=== PATIENT | female | born 1955 | race African-American/Black ===

== ENCOUNTER 2018-11-06 14:46 | Emergency (ER) | payer MEDICARE, OTHER, MEDICAID ==
[~2018-11-06] VITALS: Ht 162.6 cm; Wt 66.0 kg
[~2018-11-06 14:46] MED LIST: ALBU18HF2 IH; BIMA2.5D4 BOTHEYE; CYCL5TAB PO; ESOM40CA PO; GEMF600T5 PO; HYDR25TA PO; MELO-106 PO; OCD PO; POTA10CA42 PO; TRAM50TA3 PO; VALS80TA2 PO
[2018-11-06] MEDS ORDERED: KETOROLAC 60MG/2ML VIAL IM ONE (15:45)
[2018-11-06] MEDS ORDERED: TRAMADOL 50MG TABLET PO ONE (16:00)
[2018-11-06 18:12] VITALS: BP 132/83
== END 2018-11-06 18:16 | disposition home or self-care (01) ==
LOC: ER 14:46
DX: S70.01XA Contusion of right hip, initial encounter (principal); S50.02XA Contusion of left elbow, initial encounter; J44.9 Chronic obstructive pulmonary disease, unspecified; E78.00 Pure hypercholesterolemia, unspecified; I10 Essential (primary) hypertension; F17.200 Nicotine dependence, unspecified, uncomplicated; W18.39XA Other fall on same level, initial encounter; Y93.89 Activity, other specified; Y92.89 Other specified places as the place of occurrence of the external cause; Y99.8 Other external cause status; Z90.710 Acquired absence of both cervix and uterus; Z96.649 Presence of unspecified artificial hip joint; Z79.899 Other long term (current) drug therapy; Z88.5 Allergy status to narcotic agent
CPT/HCPCS: 73502; 99283; J1885

== ENCOUNTER 2023-05-24 00:05 | Inpatient (IN) | payer MEDICARE, MEDICAID ==
[~2023-05-24] VITALS: Ht 157.5 cm; Wt 67.6 kg
[~2023-05-24 00:05] MED LIST changes: -GEMF600T5 PO; +GEMF600T90 PO; -POTA10CA42 PO; +POTA10CA83 PO
[2023-05-24] MEDS ORDERED: IPRATROPIUM BROMIDE (0.02%) 0.5MG/2.5ML NEB HHN STA (00:10)
[2023-05-24] MEDS ORDERED: METHYLPREDNISOLONE SOD SUCC 125MG/2ML (ACT-O-VIAL) IV STA (00:10)
[2023-05-24] MEDS ORDERED: MAGNESIUM 2 G PREMIX 50 ML IV ONE (00:15)
[2023-05-24] MEDS: ALBUTEROL (0.083%) 2.5MG/3ML NEB HHN SCH ×2 (00:36→00:37)
[2023-05-24 00:37] VITALS: RESP 32
[2023-05-24 00:39] LABS: HEMATOCRIT. 43.8 % (36.0-48.0); HEMOGLOBIN. 13.6 g/dL (12.0-16.0); MEAN CORPUSCULAR HGB CONC 31.1 g/dL (31.0-37.0); MEAN CORPUSCULAR VOLUME 96.7 fL (81.0-99.0); MEAN PLATELET VOLUME 8.5 fl (7.4-10.4); PLATELET 394 x1000/uL (130-400); RED BLOOD CELL COUNT 4.53 mill/uL (4.2-5.4); RED CELL DISTRIBUTION WIDTH 14.8 % (11.6-14.6); WHITE BLOOD COUNT 17.9 x1000/uL (4.5-11.0)
[2023-05-24 00:46] LABS: DIFFERENTIAL COMMENT 1
[2023-05-24 00:59] LABS: ALANINE AMINOTRANSFERASE 17 IU/L (10-49); ALBUMIN 4.1 g/dL (3.2-4.8); ASPARTATE AMINOTRANSFERASE 42 IU/L (<34); BILIRUBIN TOTAL 0.4 mg/dL (0.1-1.0); CALCIUM 10.7 mg/dL (8.7-10.4); CARBON DIOXIDE 22 mEq/L (21-32); CHLORIDE 103 mEq/L (98-107); GLUCOSE 140 mg/dL (70-105); POTASSIUM 4.3 mEq/L (3.5-5.1); SODIUM 136 mEq/L (136-145); UREA NITROGEN BLOOD 29 mg/dL (9-23)
[2023-05-24 01:37] LABS: TROPONIN I HIGH SENSITIVITY 226 ng/L (3.0-34)
[2023-05-24] MEDS ORDERED: ASPIRIN 325MG EC TABLET PO ONE (01:45)
[2023-05-24 04:18] VITALS: RESP 22
[2023-05-24 05:04] LABS: PLATELET ESTIMATE NORMAL
[2023-05-24] MEDS ORDERED: MAGNESIUM/ALUMINUM HYDROXIDE/SIMETHICONE 30ML UDC PO PRN (07:00)
[2023-05-24] MEDS ORDERED: GUAIFENESIN 200MG/10ML SUGAR FREE UDC PO PRN (07:00)
[2023-05-24] MEDS: IPRATROPIUM/ALBUTEROL 0.5-3(2.5)MG/3ML NEB NEB SCH ×2 (07:00→21:15)
[2023-05-24] MEDS ORDERED: ONDANSETRON HCL 4MG/2ML INJ IV PRN (07:00)
[2023-05-24] MEDS ORDERED: CLONIDINE 0.1MG TABLET PO PRN (07:00)
[2023-05-24] MEDS ORDERED: AZITHROMYCIN 500MG/250ML 250 ML IV NR (07:30)
[2023-05-24 07:50] VITALS: RESP 24
[2023-05-24 08:04] LABS: ALANINE AMINOTRANSFERASE 15 IU/L (10-49); ALBUMIN 3.6 g/dL (3.2-4.8); ASPARTATE AMINOTRANSFERASE 34 IU/L (<34); BILIRUBIN TOTAL 0.3 mg/dL (0.1-1.0); CALCIUM 10.1 mg/dL (8.7-10.4); CARBON DIOXIDE 20 mEq/L (21-32); CHLORIDE 106 mEq/L (98-107); GLUCOSE 170 mg/dL (70-105); PHOSPHORUS 5.6 mg/dL (2.5-4.9); POTASSIUM 4.3 mEq/L (3.5-5.1); PROTEIN TOTAL 6.3 g/dL (6.0-8.3); SODIUM 135 mEq/L (136-145); T4 FREE 1.37 ng/dL (0.89-1.76); UREA NITROGEN BLOOD 30 mg/dL (9-23)
[2023-05-24 08:11] LABS: THYROID STIMULATING HORMONE < 0.00 uIU/mL (0.55-4.78)
[2023-05-24] MEDS ORDERED: ENOXAPARIN 60MG/0.6ML SYR SUBCUT SCH ×3 (09:00→21:00)
[2023-05-24] MEDS ORDERED: ENOXAPARIN 40MG/0.4ML SYR SUBCUT SCH (09:00)
[2023-05-24 09:26] LABS: BG BASE EXCESS -2.7 mmol/L (-2.0-2.0); BG CARBOXYHEMOGLOBIN 0.6 % (0.5-1.5); BG DEOXYHEMOGLOBIN 0.9 % (0.0-5.0); BG FRACTION INSPIRED OXYGEN 40; BG HCO3 ACT 21.3 mmol/L (22.0-26.0); BG METHEMOGLOBIN 0.3 % (0.0-1.5); BG OXYGEN SATURATION 99.1 % (92.0-98.5); BG OXYHEMOGLOBIN 98.2 % (94.0-97.0); BG PCO2 34.9 mmHg (35.0-45.0); BG PH 7.404 (7.350-7.450); BG PO2 152.6 mmHg (75.0-100.0); BG SAMPLE SITE RIGHT BRACHIAL; BG TOTAL HEMOGLOBIN 13.7 g/dL (12.0-18.0); BG VENT MODE MASK - BIPAP
[2023-05-24 09:36] LABS: HEMATOCRIT. 40.1 % (36.0-48.0); HEMOGLOBIN. 12.9 g/dL (12.0-16.0); MEAN CORPUSCULAR HEMOGLOBIN 30.4 pg (28.0-32.0); MEAN CORPUSCULAR HGB CONC 32.1 g/dL (31.0-37.0); MEAN CORPUSCULAR VOLUME 94.5 fL (81.0-99.0); MEAN PLATELET VOLUME 8.7 fl (7.4-10.4); PLATELET 291 x1000/uL (130-400); RED BLOOD CELL COUNT 4.24 mill/uL (4.2-5.4); RED CELL DISTRIBUTION WIDTH 14.4 % (11.6-14.6); WHITE BLOOD COUNT 13.9 x1000/uL (4.5-11.0)
[2023-05-24 09:38] LABS: DIFFERENTIAL COMMENT 1
[2023-05-24 09:55] LABS: PLATELET ESTIMATE NORMAL
[2023-05-24 10:46] LABS: INR 1.1; PROTHROMBIN TIME 11.6 sec (9.6-11.0)
[2023-05-24 12:13] LABS: CREATINE KINASE MB FRACTION 2.4 ng/mL (0.5-3.6)
[2023-05-24] MEDS ORDERED: IOHEXOL-350 100 ML BOTTLE ONE (14:02)
[2023-05-24] MEDS: PREGABALIN 75MG CAPSULE PO SCH ×2 (15:15→20:52)
[2023-05-24] MEDS: BUPROPION HCL 150MG SR TABLET PO SCH ×2 (15:16→20:52)
[2023-05-24 18:50] VITALS: BP 141/87; PULSE 108; RESP 20; TEMP 98.7
[2023-05-24 20:00] VITALS: BP 131/86; PULSE 110; RESP 18; TEMP 97.8
[2023-05-24] MEDS ORDERED: PREGABALIN 75MG CAPSULE ONE (20:41)
[2023-05-24 20:44] LABS: CREATINE KINASE MB FRACTION 2.8 ng/mL (0.5-3.6)
[2023-05-24 21:15] VITALS: PULSE 108; RESP 18; O2SAT 98
[2023-05-24] MEDS: BUDESONIDE 0.5MG/2ML NEB HHN SCH (21:15)
[2023-05-25] VITALS (10 sets, daily range): BP systolic 110–138; BP diastolic 57–88; PULSE 22–110; RESP 16–22; TEMP 97–98.4; O2SAT 96–99
[2023-05-25 01:23] LABS: CREATINE KINASE MB FRACTION 2.3 ng/mL (0.5-3.6)
[2023-05-25] MEDS: IPRATROPIUM/ALBUTEROL 0.5-3(2.5)MG/3ML NEB NEB SCH ×4 (03:16→20:30)
[2023-05-25] MEDS ORDERED: PREGABALIN 75MG CAPSULE ONE (08:07)
[2023-05-25] MEDS: BUPROPION HCL 150MG SR TABLET PO SCH ×2 (08:21→20:12)
[2023-05-25] MEDS: PREGABALIN 75MG CAPSULE PO SCH (08:22)
[2023-05-25] MEDS: BUDESONIDE 0.5MG/2ML NEB HHN SCH (09:06)
[2023-05-25] MEDS: NITROGLYCERIN 0.4MG TABLET SL SL PRN ×3 (09:26→09:40)
[2023-05-25] MEDS: ENOXAPARIN 40MG/0.4ML SYR SUBCUT SCH (09:41)
[2023-05-25] MEDS ORDERED: ALPRAZOLAM 0.5 MG TABLET ONE (10:52)
[2023-05-25] MEDS: ALPRAZOLAM 0.5 MG TABLET PO SCH ×2 (11:00→17:00)
[2023-05-25] MEDS: ASPIRIN 81MG TABLET PO SCH (11:00)
[2023-05-25 12:51] LABS: TROPONIN I HIGH SENSITIVITY 90 ng/L (3.0-34)
[2023-05-25 16:45] LABS: CLARITY URINE CLOUDY (CLEAR); COLOR URINE YELLOW (YELLOW); GLUCOSE URINE NEGATIVE (NEGATIVE); KETONES URINE NEGATIVE (NEGATIVE); LEUKOCYTE ESTERASE URINE 1+ (NEGATIVE); NITRITE URINE NEGATIVE (NEGATIVE); OCCULT BLOOD URINE NEGATIVE (NEGATIVE); PH URINE 5.5 (4.5-8.0); PROTEIN URINE TRACE (NEGATIVE); SPECIFIC GRAVITY URINE 1.041 (1.005-1.030)
[2023-05-25 17:06] LABS: BACTERIA URINE 1+; HYALINE CASTS URINE 0-5 /lpf; RBC URINE 0-2 /hpf (0-2); SQUAMOUS EPITHELIAL CELL URINE 2+ /lpf (RARE/1+)
[2023-05-25] MEDS: PANTOPRAZOLE SODIUM 40 MG/VIAL IV SCH (17:35)
[2023-05-25] MEDS: PREGABALIN 50 MG CAPSULE PO SCH (20:12)
[2023-05-25] MEDS ORDERED: CEFTRIAXONE 1GM PREMIX 50 ML IV SCH (23:30)
[2023-05-26] VITALS (29 sets, daily range): BP systolic 85–150; BP diastolic 22–114; PULSE 60–142; RESP 18–44; TEMP 96–97.5; O2SAT 94–96
[2023-05-26] MEDS: IPRATROPIUM/ALBUTEROL 0.5-3(2.5)MG/3ML NEB NEB SCH ×2 (01:15→08:51)
[2023-05-26] MEDS: IPRATROPIUM/ALBUTEROL 0.5-3(2.5)MG/3ML NEB NEB PRN (01:54)
[2023-05-26] MEDS: ACETAMINOPHEN 325MG TABLET PO PRN (06:20)
[2023-05-26] MEDS: ASPIRIN 81MG TABLET PO SCH (08:44)
[2023-05-26] MEDS: PANTOPRAZOLE SODIUM 40 MG/VIAL IV SCH (08:46)
[2023-05-26] MEDS: ALPRAZOLAM 0.5 MG TABLET PO SCH ×2 (08:46→19:16)
[2023-05-26] MEDS: BUPROPION HCL 150MG SR TABLET PO SCH (08:46)
[2023-05-26] MEDS: PREGABALIN 50 MG CAPSULE PO SCH (08:46)
[2023-05-26] MEDS: BUDESONIDE 0.5MG/2ML NEB HHN SCH ×2 (08:52→22:06)
[2023-05-26] MEDS: ENOXAPARIN 40MG/0.4ML SYR SUBCUT SCH (10:14)
[2023-05-26] MEDS ORDERED: FUROSEMIDE 40MG/4ML VIAL IVP NR (12:45)
[2023-05-26] MEDS ORDERED: GUAIFENESIN 600MG ER TABLET PO NR (12:45)
[2023-05-26 12:50] LABS: BG BASE EXCESS -1.5 mmol/L (-2.0-2.0); BG DEOXYHEMOGLOBIN 1.1 % (0.0-5.0); BG FRACTION INSPIRED OXYGEN 60; BG HCO3 ACT 21.2 mmol/L (22.0-26.0); BG METHEMOGLOBIN 0.1 % (0.0-1.5); BG OXYGEN SATURATION 98.9 % (92.0-98.5); BG OXYHEMOGLOBIN 98.8 % (94.0-97.0); BG PCO2 29.8 mmHg (35.0-45.0); BG PH 7.469 (7.350-7.450); BG PO2 199.9 mmHg (75.0-100.0); BG SAMPLE SITE RIGHT RADIAL; BG TOTAL HEMOGLOBIN 13.4 g/dL (12.0-18.0); BG TOTAL RESPIRATORY RATE 26 b/min; BG VENT MODE MASK - BIPAP
[2023-05-26] MEDS ORDERED: IPRATROPIUM/ALBUTEROL 0.5-3(2.5)MG/3ML NEB NEB SCH (13:00)
[2023-05-26] MEDS ORDERED: VANCOMYCIN 1.25GM PMX (XELLIA) 250 ML IV NR (15:00)
[2023-05-26 16:05] LABS: HEMOGLOBIN. 13.2 g/dL (12.0-16.0); MEAN CORPUSCULAR HEMOGLOBIN 30.2 pg (28.0-32.0); MEAN CORPUSCULAR HGB CONC 31.4 g/dL (31.0-37.0); MEAN CORPUSCULAR VOLUME 96.1 fL (81.0-99.0); MEAN PLATELET VOLUME 9.3 fl (7.4-10.4); PLATELET 290 x1000/uL (130-400); RED BLOOD CELL COUNT 4.37 mill/uL (4.2-5.4); RED CELL DISTRIBUTION WIDTH 14.4 % (11.6-14.6); WHITE BLOOD COUNT 16.6 x1000/uL (4.5-11.0)
[2023-05-26 16:06] LABS: DIFFERENTIAL COMMENT 1
[2023-05-26 16:25] LABS: PLATELET ESTIMATE NORMAL
[2023-05-26] MEDS: PIPERACILLIN/TAZO 3.375G/50ML 50 ML IV SCH ×2 (16:30→23:31)
[2023-05-26] MEDS ORDERED: METHYLPREDNISOLONE SOD SUCC 125MG/2ML (ACT-O-VIAL) IV NR (16:30)
[2023-05-26 16:54] LABS: ALANINE AMINOTRANSFERASE 15 IU/L (10-49); ALBUMIN 3.7 g/dL (3.2-4.8); ASPARTATE AMINOTRANSFERASE 43 IU/L (<34); BILIRUBIN TOTAL 0.6 mg/dL (0.1-1.0); CALCIUM 10.3 mg/dL (8.7-10.4); CARBON DIOXIDE 23 mEq/L (21-32); CHLORIDE 97 mEq/L (98-107); CREATININE 0.8 mg/dL (0.6-1.0); GLUCOSE 95 mg/dL (70-105); PHOSPHORUS 4.7 mg/dL (2.5-4.9); POTASSIUM 4.4 mEq/L (3.5-5.1); PROTEIN TOTAL 5.9 g/dL (6.0-8.3); SODIUM 130 mEq/L (136-145); UREA NITROGEN BLOOD 19 mg/dL (9-23)
[2023-05-26] MEDS: IPRATROPIUM BROMIDE (0.02%) 0.5MG/2.5ML NEB HHN SCH ×2 (17:09→22:06)
[2023-05-26] MEDS: NITROGLYCERIN 0.4MG TABLET SL SL PRN (17:10)
[2023-05-26] MEDS ORDERED: MORPHINE SULFATE 2 MG/ML CPJ (NOT FOR IM USE) IV ONE (17:30)
[2023-05-26] MEDS: GUAIFENESIN 200MG/10ML SUGAR FREE UDC PO SCH (18:00)
[2023-05-26] MEDS ORDERED: MAGNESIUM 1 G PREMIX 100 ML IV NR (18:30)
[2023-05-26] MEDS: PROPOFOL 10MG/ML 100ML 100 ML IV PRN ×2 (19:15→23:44)
[2023-05-26] MEDS ORDERED: GUAIFENESIN 600MG ER TABLET PO SCH (21:00)
[2023-05-26] MEDS: METHYLPREDNISOLONE SOD SUCC 40MG/ML (ACT-O-VIAL) IV SCH (23:31)
[2023-05-27] VITALS (52 sets, daily range): BP systolic 91–128; BP diastolic 64–87; PULSE 97–121; RESP 18–31; TEMP 97–98.3
[2023-05-27] MEDS: GUAIFENESIN 200MG/10ML SUGAR FREE UDC PO SCH ×4 (01:15→17:13)
[2023-05-27] MEDS: ACETYLCYSTEINE 200MG/ML 20% VIAL 4ML INH SCH ×3 (01:46→17:02)
[2023-05-27] MEDS: IPRATROPIUM BROMIDE (0.02%) 0.5MG/2.5ML NEB HHN SCH ×5 (01:46→20:43)
[2023-05-27] MEDS: SODIUM CHLORIDE 0.9% 1,000 ML IV SCH ×2 (03:09→17:12)
[2023-05-27] MEDS: PIPERACILLIN/TAZO 3.375G/50ML 50 ML IV SCH ×3 (05:25→22:06)
[2023-05-27] MEDS: METHYLPREDNISOLONE SOD SUCC 40MG/ML (ACT-O-VIAL) IV SCH ×3 (05:26→21:41)
[2023-05-27 06:50] LABS: HEMATOCRIT. 39.4 % (36.0-48.0); MEAN CORPUSCULAR HEMOGLOBIN 30.5 pg (28.0-32.0); MEAN CORPUSCULAR HGB CONC 32.9 g/dL (31.0-37.0); MEAN CORPUSCULAR VOLUME 92.5 fL (81.0-99.0); MEAN PLATELET VOLUME 9.5 fl (7.4-10.4); PLATELET 288 x1000/uL (130-400); RED BLOOD CELL COUNT 4.26 mill/uL (4.2-5.4); RED CELL DISTRIBUTION WIDTH 14.5 % (11.6-14.6); WHITE BLOOD COUNT 20.5 x1000/uL (4.5-11.0)
[2023-05-27] MEDS: PROPOFOL 10MG/ML 100ML 100 ML IV PRN (07:11)
[2023-05-27 07:15] LABS: DIFFERENTIAL COMMENT 1
[2023-05-27 07:26] LABS: CALCIUM 9.9 mg/dL (8.7-10.4); CARBON DIOXIDE 15 mEq/L (21-32); CHLORIDE 97 mEq/L (98-107); CREATINE KINASE 144 IU/L (34-145); CREATINE KINASE MB FRACTION 1.9 ng/mL (0.5-3.6); CREATININE 1.2 mg/dL (0.6-1.0); GAMMA GLUTAMYL TRANSPEPTIDASE 294 IU/L (<38); GLUCOSE 133 mg/dL (70-105); PHOSPHORUS 7.3 mg/dL (2.5-4.9); POTASSIUM 4.4 mEq/L (3.5-5.1); SODIUM 135 mEq/L (136-145); TRIGLYCERIDE 197 mg/dL (0-150); UREA NITROGEN BLOOD 33 mg/dL (9-23)
[2023-05-27] MEDS: IPRATROPIUM/ALBUTEROL 0.5-3(2.5)MG/3ML NEB NEB PRN (08:54)
[2023-05-27] MEDS: BUDESONIDE 0.5MG/2ML NEB HHN SCH ×2 (08:54→20:43)
[2023-05-27] MEDS: ALPRAZOLAM 0.5 MG TABLET PO SCH ×2 (09:17→17:13)
[2023-05-27] MEDS: PREGABALIN 50 MG CAPSULE PO SCH ×2 (09:17→21:41)
[2023-05-27] MEDS: BUPROPION HCL 150MG SR TABLET PO SCH ×2 (09:17→21:41)
[2023-05-27] MEDS: ASPIRIN 81MG TABLET PO SCH (09:17)
[2023-05-27] MEDS: ENOXAPARIN 40MG/0.4ML SYR SUBCUT SCH (09:18)
[2023-05-27] MEDS: FAMOTIDINE 20MG/2ML VIAL IV SCH (09:18)
[2023-05-27 09:58] LABS: BG BASE EXCESS -6.3 mmol/L (-2.0-2.0); BG CARBOXYHEMOGLOBIN 0.3 % (0.5-1.5); BG DEOXYHEMOGLOBIN 0.7 % (0.0-5.0); BG FRACTION INSPIRED OXYGEN 100; BG HCO3 ACT 15.3 mmol/L (22.0-26.0); BG METHEMOGLOBIN 0.3 % (0.0-1.5); BG OXYGEN SATURATION 99.3 % (92.0-98.5); BG OXYHEMOGLOBIN 98.7 % (94.0-97.0); BG PCO2 21.6 mmHg (35.0-45.0); BG PH 7.468 (7.350-7.450); BG PO2 269.8 mmHg (75.0-100.0); BG SAMPLE SITE RIGHT RADIAL; BG TOTAL HEMOGLOBIN 12.8 g/dL (12.0-18.0); BG VENT MODE VENT - AC/VC
[2023-05-27] MEDS ORDERED: HEPARIN 5000 UNITS/ML VIAL IV SCH ×2 (10:30→11:00)
[2023-05-27] MEDS ORDERED: HEPARIN 25,000 UNITS PREMIX 250 ML IV PRN (11:00)
[2023-05-27] MEDS ORDERED: VANCOMYCIN 1G PREMIX 200 ML IV SCH (12:00)
[2023-05-27] MEDS ORDERED: LIDOCAINE HCL 1% 10 MG/ML 10ML VIAL ONE (13:20)
[2023-05-27 17:37] LABS: PLATELET ESTIMATE NORMAL
[2023-05-27] MEDS ORDERED: HEPARIN BOLUS PRN aPTT <36 IV (18:00)
[2023-05-27] MEDS ORDERED: HEPARIN BOLUS PRN aPTT 37-44 IV (18:00)
[2023-05-28] VITALS (52 sets, daily range): BP systolic 91–115; BP diastolic 66–76; PULSE 93–106; RESP 12–34; TEMP 97.8–98.3
[2023-05-28] MEDS: MEROPENEM 500MG/50ML 50 ML IV SCH ×2 (00:05→16:41)
[2023-05-28] MEDS: ACETYLCYSTEINE 200MG/ML 20% VIAL 4ML INH SCH ×3 (00:48→16:00)
[2023-05-28] MEDS: IPRATROPIUM BROMIDE (0.02%) 0.5MG/2.5ML NEB HHN SCH ×6 (00:48→21:41)
[2023-05-28] MEDS: PIPERACILLIN/TAZO 3.375G/50ML 50 ML IV SCH ×2 (05:11→13:08)
[2023-05-28] MEDS: METHYLPREDNISOLONE SOD SUCC 40MG/ML (ACT-O-VIAL) IV SCH ×3 (05:11→22:15)
[2023-05-28] MEDS: GUAIFENESIN 200MG/10ML SUGAR FREE UDC PO SCH ×4 (05:11→16:40)
[2023-05-28] MEDS: ACETAMINOPHEN 325MG TABLET PO PRN (05:12)
[2023-05-28 05:57] LABS: HEMATOCRIT. 35.9 % (36.0-48.0); HEMOGLOBIN. 11.5 g/dL (12.0-16.0); MEAN CORPUSCULAR HEMOGLOBIN 30.1 pg (28.0-32.0); MEAN CORPUSCULAR VOLUME 93.9 fL (81.0-99.0); MEAN PLATELET VOLUME 9.5 fl (7.4-10.4); PLATELET 289 x1000/uL (130-400); RED BLOOD CELL COUNT 3.82 mill/uL (4.2-5.4); RED CELL DISTRIBUTION WIDTH 14.6 % (11.6-14.6); WHITE BLOOD COUNT 17.1 x1000/uL (4.5-11.0)
[2023-05-28 07:45] LABS: DIFFERENTIAL COMMENT 1
[2023-05-28 08:11] LABS: CALCIUM 9.3 mg/dL (8.7-10.4); CARBON DIOXIDE 20 mEq/L (21-32); CHLORIDE 105 mEq/L (98-107); CREATININE 1.1 mg/dL (0.6-1.0); GLUCOSE 130 mg/dL (70-105); PHOSPHORUS 5.4 mg/dL (2.5-4.9); POTASSIUM 4.1 mEq/L (3.5-5.1); SODIUM 137 mEq/L (136-145); UREA NITROGEN BLOOD 44 mg/dL (9-23)
[2023-05-28 08:49] LABS: BG BASE EXCESS -3.8 mmol/L (-2.0-2.0); BG CARBOXYHEMOGLOBIN 0.3 % (0.5-1.5); BG DEOXYHEMOGLOBIN 1.2 % (0.0-5.0); BG FRACTION INSPIRED OXYGEN 40; BG HCO3 ACT 18.6 mmol/L (22.0-26.0); BG METHEMOGLOBIN 0.3 % (0.0-1.5); BG OXYGEN SATURATION 98.8 % (92.0-98.5); BG OXYHEMOGLOBIN 98.2 % (94.0-97.0); BG PCO2 26.1 mmHg (35.0-45.0); BG PO2 197.5 mmHg (75.0-100.0); BG SAMPLE SITE RIGHT RADIAL; BG TOTAL HEMOGLOBIN 11.4 g/dL (12.0-18.0); BG VENT MODE VENT - AC/VC
[2023-05-28] MEDS: ALPRAZOLAM 0.5 MG TABLET PO SCH ×2 (09:22→16:40)
[2023-05-28] MEDS: PREGABALIN 50 MG CAPSULE PO SCH ×2 (09:23→22:09)
[2023-05-28] MEDS: SODIUM CHLORIDE 0.9% 1,000 ML IV SCH (09:23)
[2023-05-28] MEDS: FAMOTIDINE 20MG/2ML VIAL IV SCH (09:23)
[2023-05-28] MEDS: ASPIRIN 81MG TABLET PO SCH (09:23)
[2023-05-28] MEDS: BUPROPION HCL 150MG SR TABLET PO SCH ×2 (09:23→22:09)
[2023-05-28] MEDS ORDERED: VANCOMYCIN 500MG PREMIX 100 ML IV SCH (13:00)
[2023-05-28 13:35] LABS: PLATELET ESTIMATE NORMAL
[2023-05-28] MEDS ORDERED: HEPARIN 25,000 UNITS PREMIX 250 ML IV SCH (14:00)
[2023-05-28] MEDS ORDERED: NALOXONE HCL 0.4MG/ML VIAL IV PRN (18:30)
[2023-05-28] MEDS: TRAMADOL 50MG TABLET GT PRN (19:01)
[2023-05-29] VITALS (53 sets, daily range): BP systolic 97–136; BP diastolic 65–101; PULSE 97–113; RESP 18–43; TEMP 98–98.6
[2023-05-29] MEDS: IPRATROPIUM BROMIDE (0.02%) 0.5MG/2.5ML NEB HHN SCH ×6 (00:46→20:23)
[2023-05-29] MEDS: ACETYLCYSTEINE 200MG/ML 20% VIAL 4ML INH SCH ×3 (00:47→16:11)
[2023-05-29] MEDS: GUAIFENESIN 200MG/10ML SUGAR FREE UDC PO SCH ×4 (00:52→17:10)
[2023-05-29] MEDS: TRAMADOL 50MG TABLET GT PRN ×3 (04:55→21:14)
[2023-05-29 06:00] LABS: HEMATOCRIT. 36.2 % (36.0-48.0); HEMOGLOBIN. 11.5 g/dL (12.0-16.0); MEAN CORPUSCULAR HEMOGLOBIN 30.2 pg (28.0-32.0); MEAN CORPUSCULAR HGB CONC 31.9 g/dL (31.0-37.0); MEAN CORPUSCULAR VOLUME 94.7 fL (81.0-99.0); MEAN PLATELET VOLUME 9.4 fl (7.4-10.4); PLATELET 253 x1000/uL (130-400); RED BLOOD CELL COUNT 3.83 mill/uL (4.2-5.4); RED CELL DISTRIBUTION WIDTH 14.2 % (11.6-14.6); WHITE BLOOD COUNT 13.9 x1000/uL (4.5-11.0)
[2023-05-29] MEDS: MEROPENEM 500MG/50ML 50 ML IV SCH ×3 (06:00→21:16)
[2023-05-29 06:15] LABS: DIFFERENTIAL COMMENT 1
[2023-05-29 06:20] LABS: ALBUMIN 3.1 g/dL (3.2-4.8); CALCIUM 9.1 mg/dL (8.7-10.4); CARBON DIOXIDE 20 mEq/L (21-32); CHLORIDE 109 mEq/L (98-107); CREATININE 0.8 mg/dL (0.6-1.0); GLUCOSE 121 mg/dL (70-105); PHOSPHORUS 3.3 mg/dL (2.5-4.9); PREALBUMIN 5.6 mg/dl (10.0-40.0); SODIUM 141 mEq/L (136-145); UREA NITROGEN BLOOD 50 mg/dL (9-23)
[2023-05-29] MEDS: METHYLPREDNISOLONE SOD SUCC 40MG/ML (ACT-O-VIAL) IV SCH ×3 (07:10→21:16)
[2023-05-29] MEDS: PREGABALIN 50 MG CAPSULE PO SCH ×2 (08:49→21:13)
[2023-05-29] MEDS: ALPRAZOLAM 0.5 MG TABLET PO SCH ×2 (08:49→17:10)
[2023-05-29] MEDS: FAMOTIDINE 20MG/2ML VIAL IV SCH (08:49)
[2023-05-29] MEDS: ASPIRIN 81MG TABLET PO SCH (08:50)
[2023-05-29] MEDS: BUPROPION HCL 150MG SR TABLET PO SCH ×2 (08:50→21:13)
[2023-05-29] MEDS: SODIUM CHLORIDE 0.9% 1,000 ML IV SCH ×2 (08:50→21:15)
[2023-05-29 09:05] LABS: BG BASE EXCESS -6.3 mmol/L (-2.0-2.0); BG CARBOXYHEMOGLOBIN 0.1 % (0.5-1.5); BG DEOXYHEMOGLOBIN 3.4 % (0.0-5.0); BG FRACTION INSPIRED OXYGEN 40; BG HCO3 ACT 17.1 mmol/L (22.0-26.0); BG METHEMOGLOBIN 0.3 % (0.0-1.5); BG OXYGEN SATURATION 96.6 % (92.0-98.5); BG OXYHEMOGLOBIN 96.2 % (94.0-97.0); BG PCO2 28.4 mmHg (35.0-45.0); BG PH 7.398 (7.350-7.450); BG PO2 93.4 mmHg (75.0-100.0); BG SAMPLE SITE RIGHT BRACHIAL; BG TOTAL HEMOGLOBIN 13.6 g/dL (12.0-18.0); BG VENT MODE VENT - SIMV
[2023-05-29 13:56] LABS: PLATELET ESTIMATE NORMAL
[2023-05-29 17:09] LABS: ANTI-CARDIOLIPIN AB IGA < 9 APL U/mL (0-11); ANTI-CARDIOLIPIN AB IGG < 9 GPL U/mL (0-14); ANTI-CARDIOLIPIN AB IGM < 9 MPL U/mL (0-12)
[2023-05-29] MEDS ORDERED: LORAZEPAM 4MG/ML INJ IV NR (22:30)
[2023-05-29] MEDS ORDERED: LORAZEPAM 2MG/ML INJ IV NR (23:00)
[2023-05-30] VITALS (55 sets, daily range): BP systolic 95–142; BP diastolic 72–91; PULSE 104–133; RESP 16–42; TEMP 98–102.3
[2023-05-30] MEDS: GUAIFENESIN 200MG/10ML SUGAR FREE UDC PO SCH ×4 (00:05→18:30)
[2023-05-30] MEDS: ACETYLCYSTEINE 200MG/ML 20% VIAL 4ML INH SCH ×4 (00:44→23:20)
[2023-05-30] MEDS: IPRATROPIUM BROMIDE (0.02%) 0.5MG/2.5ML NEB HHN SCH ×6 (00:44→20:47)
[2023-05-30] MEDS: METHYLPREDNISOLONE SOD SUCC 40MG/ML (ACT-O-VIAL) IV SCH ×3 (05:24→23:19)
[2023-05-30] MEDS: MEROPENEM 500MG/50ML 50 ML IV SCH ×3 (05:24→22:00)
[2023-05-30 06:22] LABS: HEMATOCRIT. 38.3 % (36.0-48.0); HEMOGLOBIN. 11.9 g/dL (12.0-16.0); MEAN CORPUSCULAR HEMOGLOBIN 29.8 pg (28.0-32.0); PLATELET 255 x1000/uL (130-400); RED BLOOD CELL COUNT 3.99 mill/uL (4.2-5.4); RED CELL DISTRIBUTION WIDTH 14.3 % (11.6-14.6); WHITE BLOOD COUNT 16.8 x1000/uL (4.5-11.0)
[2023-05-30 06:35] LABS: CALCIUM 9.2 mg/dL (8.7-10.4); CARBON DIOXIDE 20 mEq/L (21-32); CHLORIDE 117 mEq/L (98-107); CREATININE 0.6 mg/dL (0.6-1.0); GLUCOSE 205 mg/dL (70-105); SODIUM 148 mEq/L (136-145); UREA NITROGEN BLOOD 45 mg/dL (9-23)
[2023-05-30 06:51] LABS: DIFFERENTIAL COMMENT 1
[2023-05-30] MEDS: ALPRAZOLAM 0.5 MG TABLET PO SCH (09:00)
[2023-05-30] MEDS: PREGABALIN 50 MG CAPSULE PO SCH ×2 (09:56→20:58)
[2023-05-30] MEDS: FAMOTIDINE 20MG/2ML VIAL IV SCH (09:56)
[2023-05-30] MEDS: BUPROPION HCL 150MG SR TABLET PO SCH ×2 (09:56→20:58)
[2023-05-30] MEDS: ACETAMINOPHEN 325MG TABLET PO PRN ×3 (09:56→20:58)
[2023-05-30] MEDS: ASPIRIN 81MG TABLET PO SCH (09:56)
[2023-05-30] MEDS: SODIUM CHLORIDE 0.9% 1,000 ML IV SCH (12:00)
[2023-05-30 15:28] LABS: HYPOCHROMASIA 1+; PLATELET ESTIMATE NORMAL
[2023-05-31] VITALS (46 sets, daily range): BP systolic 110–138; BP diastolic 73–103; PULSE 113–141; RESP 16–50; TEMP 100–102.3
[2023-05-31] MEDS: IPRATROPIUM BROMIDE (0.02%) 0.5MG/2.5ML NEB HHN SCH ×5 (00:01→16:54)
[2023-05-31] MEDS: ACETYLCYSTEINE 200MG/ML 20% VIAL 4ML INH SCH ×2 (00:01→08:54)
[2023-05-31] MEDS: ACETAMINOPHEN 325MG TABLET PO PRN ×4 (03:39→19:08)
[2023-05-31 06:04] LABS: HEMOGLOBIN. 12.2 g/dL (12.0-16.0); MEAN CORPUSCULAR HEMOGLOBIN 30.2 pg (28.0-32.0); MEAN CORPUSCULAR HGB CONC 30.6 g/dL (31.0-37.0); MEAN CORPUSCULAR VOLUME 98.6 fL (81.0-99.0); MEAN PLATELET VOLUME 9.6 fl (7.4-10.4); PLATELET 192 x1000/uL (130-400); RED BLOOD CELL COUNT 4.06 mill/uL (4.2-5.4); WHITE BLOOD COUNT 25.2 x1000/uL (4.5-11.0)
[2023-05-31 06:09] LABS: DIFFERENTIAL COMMENT 1
[2023-05-31] MEDS: GUAIFENESIN 200MG/10ML SUGAR FREE UDC PO SCH ×4 (06:15→18:02)
[2023-05-31] MEDS: METHYLPREDNISOLONE SOD SUCC 40MG/ML (ACT-O-VIAL) IV SCH ×3 (06:15→21:56)
[2023-05-31] MEDS: TRAMADOL 50MG TABLET GT PRN (06:16)
[2023-05-31] MEDS: MEROPENEM 500MG/50ML 50 ML IV SCH ×3 (06:20→22:00)
[2023-05-31 06:26] LABS: ALANINE AMINOTRANSFERASE 20 IU/L (10-49); ALBUMIN 3.2 g/dL (3.2-4.8); ASPARTATE AMINOTRANSFERASE 52 IU/L (<34); BILIRUBIN TOTAL 0.4 mg/dL (0.1-1.0); CARBON DIOXIDE 19 mEq/L (21-32); CHLORIDE 122 mEq/L (98-107); CREATININE 0.5 mg/dL (0.6-1.0); GLUCOSE 187 mg/dL (70-105); POTASSIUM 4.1 mEq/L (3.5-5.1); SODIUM 153 mEq/L (136-145); UREA NITROGEN BLOOD 37 mg/dL (9-23)
[2023-05-31 08:28] LABS: BG BASE EXCESS -5.3 mmol/L (-2.0-2.0); BG CARBOXYHEMOGLOBIN 0.3 % (0.5-1.5); BG DEOXYHEMOGLOBIN 2.8 % (0.0-5.0); BG FRACTION INSPIRED OXYGEN 40; BG HCO3 ACT 17.2 mmol/L (22.0-26.0); BG OXYGEN SATURATION 97.2 % (92.0-98.5); BG OXYHEMOGLOBIN 96.9 % (94.0-97.0); BG PCO2 25.6 mmHg (35.0-45.0); BG PH 7.446 (7.350-7.450); BG PO2 93.9 mmHg (75.0-100.0); BG SAMPLE SITE RIGHT RADIAL; BG TOTAL HEMOGLOBIN 12.6 g/dL (12.0-18.0); BG VENT MODE VENT - AC
[2023-05-31] MEDS: ASPIRIN 81MG TABLET PO SCH (08:55)
[2023-05-31] MEDS: PREGABALIN 50 MG CAPSULE PO SCH (08:55)
[2023-05-31] MEDS: BUPROPION HCL 150MG SR TABLET PO SCH ×2 (08:56→21:56)
[2023-05-31] MEDS: FAMOTIDINE 20MG/2ML VIAL IV SCH (08:56)
[2023-05-31 09:20] LABS: ANISOCYTOSIS 1+; PLATELET ESTIMATE NORMAL
[2023-05-31] MEDS: ENOXAPARIN 40MG/0.4ML SYR SUBCUT SCH (18:01)
[2023-05-31] MEDS: VANCOMYCIN 250MG/5ML ORAL SYRINGE PO SCH (18:12)
[2023-05-31] MEDS ORDERED: SODIUM CHLORIDE 0.45% 500 ML IV ONE (19:45)
[2023-05-31] MEDS ORDERED: NOREPINEPHRINE 8MG/250ML PMX 250 ML IV PRN (21:15)
[2023-05-31] MEDS ORDERED: PHENYLEPHRINE 50 MG in DEXT 5% WATER 245 ML IV PRN (21:15)
[2023-05-31] MEDS: MIDAZOLAM 100MG/100ML PMX 100 ML IV PRN (21:57)
[2023-06-01] VITALS (69 sets, daily range): BP systolic 91–138; BP diastolic 69–98; PULSE 116–150; RESP 18–45; TEMP 100.4–102.8
[2023-06-01] MEDS: PREGABALIN 50 MG CAPSULE PO SCH ×3 (00:23→22:27)
[2023-06-01] MEDS: ACETAMINOPHEN 325MG TABLET PO PRN ×3 (00:24→15:40)
[2023-06-01] MEDS: VANCOMYCIN 250MG/5ML ORAL SYRINGE PO SCH ×4 (00:24→18:15)
[2023-06-01 04:57] LABS: BG CARBOXYHEMOGLOBIN 0.3 % (0.5-1.5); BG DEOXYHEMOGLOBIN 3.7 % (0.0-5.0); BG FRACTION INSPIRED OXYGEN 40; BG HCO3 ACT 18.2 mmol/L (22.0-26.0); BG METHEMOGLOBIN 0.2 % (0.0-1.5); BG OXYGEN SATURATION 96.3 % (92.0-98.5); BG OXYHEMOGLOBIN 95.8 % (94.0-97.0); BG PCO2 28.8 mmHg (35.0-45.0); BG PH 7.419 (7.350-7.450); BG PO2 88.2 mmHg (75.0-100.0); BG SAMPLE SITE LEFT BRACHIAL; BG TOTAL HEMOGLOBIN 12.9 g/dL (12.0-18.0); BG VENT MODE VENT - AC
[2023-06-01 05:46] LABS: HEMATOCRIT. 39.9 % (36.0-48.0); MEAN CORPUSCULAR HEMOGLOBIN 29.9 pg (28.0-32.0); MEAN CORPUSCULAR HGB CONC 30.1 g/dL (31.0-37.0); MEAN CORPUSCULAR VOLUME 99.1 fL (81.0-99.0); MEAN PLATELET VOLUME 10.4 fl (7.4-10.4); PLATELET 190 x1000/uL (130-400); RED BLOOD CELL COUNT 4.02 mill/uL (4.2-5.4); RED CELL DISTRIBUTION WIDTH 15.7 % (11.6-14.6); WHITE BLOOD COUNT 30.4 x1000/uL (4.5-11.0)
[2023-06-01 06:06] LABS: CALCIUM 8.9 mg/dL (8.7-10.4); CARBON DIOXIDE 20 mEq/L (21-32); CHLORIDE 119 mEq/L (98-107); CREATININE 0.5 mg/dL (0.6-1.0); GLUCOSE 175 mg/dL (70-105); POTASSIUM 4.2 mEq/L (3.5-5.1); SODIUM 149 mEq/L (136-145); UREA NITROGEN BLOOD 42 mg/dL (9-23)
[2023-06-01 06:28] LABS: DIFFERENTIAL COMMENT 1
[2023-06-01] MEDS: GUAIFENESIN 200MG/10ML SUGAR FREE UDC PO SCH ×4 (06:54→18:15)
[2023-06-01] MEDS: METHYLPREDNISOLONE SOD SUCC 40MG/ML (ACT-O-VIAL) IV SCH ×3 (06:56→22:26)
[2023-06-01] MEDS: MEROPENEM 500MG/50ML 50 ML IV SCH ×3 (07:33→22:00)
[2023-06-01 08:34] LABS: BG BASE EXCESS -5.2 mmol/L (-2.0-2.0); BG CARBOXYHEMOGLOBIN 0.1 % (0.5-1.5); BG DEOXYHEMOGLOBIN 2.1 % (0.0-5.0); BG FRACTION INSPIRED OXYGEN 40; BG HCO3 ACT 17.3 mmol/L (22.0-26.0); BG METHEMOGLOBIN 0.1 % (0.0-1.5); BG OXYGEN SATURATION 97.9 % (92.0-98.5); BG OXYHEMOGLOBIN 97.7 % (94.0-97.0); BG PCO2 25.7 mmHg (35.0-45.0); BG PH 7.445 (7.350-7.450); BG PO2 111.1 mmHg (75.0-100.0); BG SAMPLE SITE RIGHT RADIAL; BG TOTAL HEMOGLOBIN 12.8 g/dL (12.0-18.0); BG TOTAL RESPIRATORY RATE 22 b/min; BG VENT MODE VENT - AC
[2023-06-01] MEDS ORDERED: CARVEDILOL 3.125 MG TABLET PO SCH (09:00)
[2023-06-01] MEDS: FAMOTIDINE 20MG/2ML VIAL IV SCH (09:05)
[2023-06-01] MEDS: BUPROPION HCL 150MG SR TABLET PO SCH ×2 (09:05→22:28)
[2023-06-01] MEDS: ASPIRIN 81MG TABLET PO SCH (09:05)
[2023-06-01] MEDS: IBUPROFEN 400MG TABLET PO PRN ×2 (12:59→22:27)
[2023-06-01 15:25] LABS: PLATELET ESTIMATE NORMAL
[2023-06-01] MEDS ORDERED: SODIUM CHLORIDE 0.45% 1,000 ML IV ONE (15:45)
[2023-06-01] MEDS: ENOXAPARIN 40MG/0.4ML SYR SUBCUT SCH (18:16)
[2023-06-01] MEDS: CARVEDILOL 6.25 MG TABLET PO SCH ×2 (18:56→22:28)
[2023-06-01] MEDS: MIDAZOLAM 100MG/100ML PMX 100 ML IV PRN (20:44)
[2023-06-01 22:21] LABS: BG BASE EXCESS -6.2 mmol/L (-2.0-2.0); BG DEOXYHEMOGLOBIN 3.1 % (0.0-5.0); BG FRACTION INSPIRED OXYGEN 40; BG HCO3 ACT 15.2 mmol/L (22.0-26.0); BG METHEMOGLOBIN 0.3 % (0.0-1.5); BG OXYGEN SATURATION 96.9 % (92.0-98.5); BG OXYHEMOGLOBIN 96.6 % (94.0-97.0); BG PH 7.478 (7.350-7.450); BG PO2 89.3 mmHg (75.0-100.0); BG SAMPLE SITE LEFT BRACHIAL; BG TOTAL HEMOGLOBIN 12.7 g/dL (12.0-18.0); BG VENT MODE VENT - AC
[2023-06-01] MEDS: FLUCONAZOLE 400MG/200ML BAG 200 ML IV SCH (23:30)
[2023-06-02] VITALS (73 sets, daily range): BP systolic 84–124; BP diastolic 56–84; PULSE 85–145; RESP 18–41; TEMP 100.5–104.3
[2023-06-02] MEDS ORDERED: VANCOMYCIN 1.25GM PMX (XELLIA) 250 ML IV NR (01:00)
[2023-06-02] MEDS ORDERED: KETOROLAC 15MG/ML VIAL IV NR (01:15)
[2023-06-02] MEDS: PROPOFOL 10MG/ML 100ML 100 ML IV PRN ×2 (02:21→21:07)
[2023-06-02] MEDS: ACETAMINOPHEN 325MG TABLET PO PRN ×3 (02:56→22:36)
[2023-06-02 05:52] LABS: HEMOGLOBIN 10.9 g/dL (12.0-16.0); MEAN CORPUSCULAR HEMOGLOBIN 30.1 pg (28.0-32.0); MEAN CORPUSCULAR HGB CONC 31.1 g/dL (31.0-37.0); MEAN CORPUSCULAR VOLUME 96.8 fL (81.0-99.0); PLATELET 121 x1000/uL (130-400); RED BLOOD CELL COUNT 3.61 mill/uL (4.2-5.4); RED CELL DISTRIBUTION WIDTH 15.5 % (11.6-14.6); WHITE BLOOD COUNT 22.5 x1000/uL (4.5-11.0)
[2023-06-02] MEDS: MEROPENEM 500MG/50ML 50 ML IV SCH ×3 (06:00→22:39)
[2023-06-02] MEDS: METHYLPREDNISOLONE SOD SUCC 40MG/ML (ACT-O-VIAL) IV SCH ×3 (06:00→21:06)
[2023-06-02] MEDS: GUAIFENESIN 200MG/10ML SUGAR FREE UDC PO SCH ×5 (06:00→23:17)
[2023-06-02 06:27] LABS: CARBON DIOXIDE 14 mEq/L (21-32); CHLORIDE 118 mEq/L (98-107); CREATININE 0.6 mg/dL (0.6-1.0); GLUCOSE 192 mg/dL (70-105); SODIUM 147 mEq/L (136-145); UREA NITROGEN BLOOD 69 mg/dL (9-23)
[2023-06-02] MEDS: VANCOMYCIN 250MG/5ML ORAL SYRINGE PO SCH ×5 (07:06→23:17)
[2023-06-02 09:08] LABS: BG BASE EXCESS -8.2 mmol/L (-2.0-2.0); BG CARBOXYHEMOGLOBIN 0.1 % (0.5-1.5); BG DEOXYHEMOGLOBIN 2.3 % (0.0-5.0); BG FRACTION INSPIRED OXYGEN 40; BG METHEMOGLOBIN 0.1 % (0.0-1.5); BG OXYGEN SATURATION 97.7 % (92.0-98.5); BG OXYHEMOGLOBIN 97.5 % (94.0-97.0); BG PH 7.396 (7.350-7.450); BG PO2 115.6 mmHg (75.0-100.0); BG SAMPLE SITE RIGHT BRACHIAL; BG TOTAL HEMOGLOBIN 12.2 g/dL (12.0-18.0); BG VENT MODE VENT - AC
[2023-06-02] MEDS: FAMOTIDINE 20MG/2ML VIAL IV SCH (10:02)
[2023-06-02] MEDS: ASPIRIN 81MG TABLET PO SCH (10:02)
[2023-06-02] MEDS: CARVEDILOL 6.25 MG TABLET PO SCH ×2 (10:02→21:05)
[2023-06-02] MEDS: BUPROPION HCL 150MG SR TABLET PO SCH ×2 (10:03→21:06)
[2023-06-02] MEDS: PREGABALIN 50 MG CAPSULE PO SCH ×2 (10:03→21:05)
[2023-06-02] MEDS ORDERED: VANCOMYCIN 750MG PREMIX 150 ML IV SCH (18:00)
[2023-06-02] MEDS: VANCOMYCIN 500MG PREMIX 100 ML IV SCH (18:28)
[2023-06-02] MEDS: ENOXAPARIN 40MG/0.4ML SYR SUBCUT SCH (18:33)
[2023-06-02] MEDS: FLUCONAZOLE 400MG/200ML BAG 200 ML IV SCH (22:35)
[2023-06-03] VITALS (81 sets, daily range): BP systolic 61–129; BP diastolic 15–98; PULSE 101–134; RESP 24–50; TEMP 101.1–103.2; O2SAT 98
[2023-06-03] MEDS: IBUPROFEN 400MG TABLET PO PRN ×2 (00:25→21:00)
[2023-06-03] MEDS ORDERED: PROPOFOL 10MG/ML 100ML 100 ML IV PRN (03:15)
[2023-06-03] MEDS: METHYLPREDNISOLONE SOD SUCC 40MG/ML (ACT-O-VIAL) IV SCH ×3 (05:25→20:59)
[2023-06-03] MEDS: ACETAMINOPHEN 325MG TABLET PO PRN ×2 (05:26→21:00)
[2023-06-03] MEDS: VANCOMYCIN 500MG PREMIX 100 ML IV SCH ×2 (05:27→17:04)
[2023-06-03] MEDS: VANCOMYCIN 250MG/5ML ORAL SYRINGE PO SCH ×4 (05:27→23:51)
[2023-06-03] MEDS: GUAIFENESIN 200MG/10ML SUGAR FREE UDC PO SCH ×4 (05:27→23:51)
[2023-06-03 05:31] LABS: CALCIUM 8.5 mg/dL (8.7-10.4); CARBON DIOXIDE 14 mEq/L (21-32); CHLORIDE 115 mEq/L (98-107); CREATININE 1.1 mg/dL (0.6-1.0); GLUCOSE 173 mg/dL (70-105); POTASSIUM 5.1 mEq/L (3.5-5.1); SODIUM 144 mEq/L (136-145); TRIGLYCERIDE 598 mg/dL (0-150); UREA NITROGEN BLOOD 85 mg/dL (9-23)
[2023-06-03] MEDS: MEROPENEM 500MG/50ML 50 ML IV SCH ×3 (05:33→22:11)
[2023-06-03 05:41] LABS: HEMATOCRIT 38.9 % (36.0-48.0); HEMOGLOBIN 12.3 g/dL (12.0-16.0); MEAN CORPUSCULAR HGB CONC 31.6 g/dL (31.0-37.0); MEAN CORPUSCULAR VOLUME 94.7 fL (81.0-99.0); PLATELET 179 x1000/uL (130-400); WHITE BLOOD COUNT 23.8 x1000/uL (4.5-11.0)
[2023-06-03] MEDS ORDERED: SODIUM CHLORIDE 0.45% 1,000 ML IV ONE (08:45)
[2023-06-03] MEDS: BUPROPION HCL 150MG SR TABLET PO SCH ×2 (08:58→20:59)
[2023-06-03] MEDS: CARVEDILOL 6.25 MG TABLET PO SCH ×2 (08:58→20:59)
[2023-06-03] MEDS: ASPIRIN 81MG TABLET PO SCH (08:58)
[2023-06-03] MEDS: PREGABALIN 50 MG CAPSULE PO SCH ×2 (08:58→20:59)
[2023-06-03] MEDS: FAMOTIDINE 20MG/2ML VIAL IV SCH (08:59)
[2023-06-03] MEDS: PROPOFOL 10MG/ML 100ML 100 ML IV SCH ×2 (09:18→12:23)
[2023-06-03] MEDS ORDERED: LEVOFLOXACIN 750MG PREMIX 150 ML IV SCH (16:30)
[2023-06-03] MEDS: ENOXAPARIN 40MG/0.4ML SYR SUBCUT SCH (17:04)
[2023-06-03] MEDS ORDERED: MIDAZOLAM 100MG/100ML PMX 100 ML IV PRN (19:56)
[2023-06-03] MEDS ORDERED: FENTANYL 2500MCG/250ML PMX 250 ML IV PRN (22:00)
[2023-06-03] MEDS: FLUCONAZOLE 400MG/200ML BAG 200 ML IV SCH (22:39)
[2023-06-04] VITALS (69 sets, daily range): BP systolic 61–155; BP diastolic 38–143; PULSE 37–175; RESP 11–45; TEMP 99.2–103.7
[2023-06-04] MEDS: IBUPROFEN 400MG TABLET PO PRN ×2 (03:00→09:28)
[2023-06-04] MEDS: ACETAMINOPHEN 325MG TABLET PO PRN ×2 (03:00→09:28)
[2023-06-04 05:37] LABS: HEMATOCRIT 38.4 % (36.0-48.0); HEMOGLOBIN 11.8 g/dL (12.0-16.0); MEAN CORPUSCULAR HEMOGLOBIN 30.2 pg (28.0-32.0); MEAN CORPUSCULAR HGB CONC 30.6 g/dL (31.0-37.0); MEAN CORPUSCULAR VOLUME 98.7 fL (81.0-99.0); PLATELET 225 x1000/uL (130-400); RED BLOOD CELL COUNT 3.89 mill/uL (4.2-5.4); RED CELL DISTRIBUTION WIDTH 15.1 % (11.6-14.6); WHITE BLOOD COUNT 21.7 x1000/uL (4.5-11.0)
[2023-06-04] MEDS: VANCOMYCIN 500MG PREMIX 100 ML IV SCH (05:39)
[2023-06-04] MEDS: GUAIFENESIN 200MG/10ML SUGAR FREE UDC PO SCH ×2 (05:39→12:45)
[2023-06-04] MEDS: METHYLPREDNISOLONE SOD SUCC 40MG/ML (ACT-O-VIAL) IV SCH (05:39)
[2023-06-04] MEDS: VANCOMYCIN 250MG/5ML ORAL SYRINGE PO SCH ×2 (05:39→12:45)
[2023-06-04] MEDS: MEROPENEM 500MG/50ML 50 ML IV SCH ×2 (05:50→12:46)
[2023-06-04 05:55] LABS: CALCIUM 7.9 mg/dL (8.7-10.4); CREATININE 1.4 mg/dL (0.6-1.0); POTASSIUM 5.5 mEq/L (3.5-5.1)
[2023-06-04 08:36] LABS: BG BASE EXCESS -15.8 mmol/L (-2.0-2.0); BG CARBOXYHEMOGLOBIN 0.3 % (0.5-1.5); BG FRACTION INSPIRED OXYGEN 50; BG HCO3 ACT 11.4 mmol/L (22.0-26.0); BG METHEMOGLOBIN 0.1 % (0.0-1.5); BG OXYHEMOGLOBIN 96.6 % (94.0-97.0); BG PCO2 31.6 mmHg (35.0-45.0); BG PH 7.175 (7.350-7.450); BG PO2 121.9 mmHg (75.0-100.0); BG SAMPLE SITE LEFT BRACHIAL; BG TOTAL HEMOGLOBIN 13.6 g/dL (12.0-18.0); BG VENT MODE VENT - AC
[2023-06-04] MEDS ORDERED: SODIUM BICARBONATE 8.4% 1 MEQ/ML 50ML SYR IV NR (08:45)
[2023-06-04] MEDS ORDERED: PHENYLEPHRINE 100 MG in DEXT 5% WATER 240 ML IV PRN (08:45)
[2023-06-04] MEDS: CARVEDILOL 6.25 MG TABLET PO SCH (09:00)
[2023-06-04] MEDS ORDERED: SODIUM BICARBONATE 8.4% 1 MEQ/ML 50ML SYR IV SCH (10:00)
[2023-06-04] MEDS ORDERED: SODIUM CHLORIDE 0.9% 1,000 ML IV ONE (10:15)
[2023-06-04 10:54] LABS: BG BASE EXCESS -10.4 mmol/L (-2.0-2.0); BG CARBOXYHEMOGLOBIN 0.3 % (0.5-1.5); BG DEOXYHEMOGLOBIN 4.9 % (0.0-5.0); BG FRACTION INSPIRED OXYGEN 40; BG METHEMOGLOBIN 0.2 % (0.0-1.5); BG OXYGEN SATURATION 95.1 % (92.0-98.5); BG OXYHEMOGLOBIN 94.6 % (94.0-97.0); BG PCO2 23.2 mmHg (35.0-45.0); BG PH 7.367 (7.350-7.450); BG PO2 85.1 mmHg (75.0-100.0); BG SAMPLE SITE LEFT RADIAL; BG TOTAL HEMOGLOBIN 12.7 g/dL (12.0-18.0); BG VENT MODE VENT - AC
[2023-06-04] MEDS: FAMOTIDINE 20MG/2ML VIAL IV SCH (11:06)
[2023-06-04] MEDS: PREGABALIN 50 MG CAPSULE PO SCH (11:06)
[2023-06-04] MEDS: ASPIRIN 81MG TABLET PO SCH (11:06)
[2023-06-04] MEDS: BUPROPION HCL 150MG SR TABLET PO SCH (11:08)
[2023-06-04] MEDS ORDERED: SODIUM CHLORIDE 0.9% 1,000 ML IV SCH (12:00)
[2023-06-04] MEDS ORDERED: FENTANYL CITRATE 2,500 MCG in SODIUM CHLORIDE 0.9% 200 ML IV PRN (12:15)
[2023-06-04 12:20] LABS: LACTIC ACID 29.1 mmol/L (0.4-2.0)
[2023-06-04] MEDS ORDERED: NOREPINEPHRINE 32 MG in DEXT 5% WATER 218 ML IV PRN (13:00)
[2023-06-04] MEDS ORDERED: VASOPRESSIN 20 UNIT in SODIUM CHLORIDE 0.9% 99 ML IV PRN (13:00)
[2023-06-04] MEDS ORDERED: FLUCONAZOLE 200 MG/100ML BAG 100 ML IV SCH (23:00)
[2023-06-04] MEDS ORDERED: MEROPENEM 1G/100ML 100 ML IV SCH (23:00)
== END 2023-06-04 20:00 | DRG 870 ==
LOC: ER 00:05 → 8WST 01:43 → EDBEDREQ 02:06 → SUPCPDRO 06:46 → EDBEDREQSVC 12:33 → 5EST 05-26 16:02 → MICUNO 05-27 12:30
PROVIDERS: ADMIT Internal Medicine; ATTEND Internal Medicine
PROC: 5A09357 Assistance with Respiratory Ventilation, Less than 24 Consecutive Hours, Continuous Positive Airway Pressure (ICD-10-PCS; 2023-05-24)
PROC: 5A1955Z Respiratory Ventilation, Greater than 96 Consecutive Hours (ICD-10-PCS; principal; 2023-05-26)
PROC: 0BH17EZ Insertion of Endotracheal Airway into Trachea, Via Natural or Artificial Opening (ICD-10-PCS; 2023-05-26)
PROC: 5A09357 Assistance with Respiratory Ventilation, Less than 24 Consecutive Hours, Continuous Positive Airway Pressure (ICD-10-PCS; 2023-05-26)
PROC: 05HY33Z Insertion of Infusion Device into Upper Vein, Percutaneous Approach (ICD-10-PCS; 2023-05-27)
PROC: B54MZZA Ultrasonography of Right Upper Extremity Veins, Guidance (ICD-10-PCS; 2023-05-27)
PROC: 5A12012 Performance of Cardiac Output, Single, Manual (ICD-10-PCS; 2023-06-04)
DX: A41.59 Other Gram-negative sepsis (principal); I21.A1 Myocardial infarction type 2; J96.21 Acute and chronic respiratory failure with hypoxia; J15.69 Pneumonia due to other Gram-negative bacteria; J15.0 Pneumonia due to Klebsiella pneumoniae; J44.1 Chronic obstructive pulmonary disease with (acute) exacerbation; C79.51 Secondary malignant neoplasm of bone; E87.1 Hypo-osmolality and hyponatremia; C78.6 Secondary malignant neoplasm of retroperitoneum and peritoneum; C78.7 Secondary malignant neoplasm of liver and intrahepatic bile duct; J44.0 Chronic obstructive pulmonary disease with (acute) lower respiratory infection; N17.9 Acute kidney failure, unspecified; E46 Unspecified protein-calorie malnutrition; E87.0 Hyperosmolality and hypernatremia; G93.40 Encephalopathy, unspecified; Z16.12 Extended spectrum beta lactamase (ESBL) resistance; Z20.822 Contact with and (suspected) exposure to COVID-19; I10 Essential (primary) hypertension; E86.0 Dehydration; M32.9 Systemic lupus erythematosus, unspecified; M19.90 Unspecified osteoarthritis, unspecified site; M79.7 Fibromyalgia; E83.39 Other disorders of phosphorus metabolism; F41.9 Anxiety disorder, unspecified; F17.210 Nicotine dependence, cigarettes, uncomplicated; D64.9 Anemia, unspecified; E04.1 Nontoxic single thyroid nodule; E87.8 Other disorders of electrolyte and fluid balance, not elsewhere classified; N60.01 Solitary cyst of right breast; N60.02 Solitary cyst of left breast; R73.03 Prediabetes; G47.33 Obstructive sleep apnea (adult) (pediatric); H40.9 Unspecified glaucoma; M10.9 Gout, unspecified; R73.9 Hyperglycemia, unspecified; G35 Multiple sclerosis; S30.0XXA Contusion of lower back and pelvis, initial encounter; Z96.641 Presence of right artificial hip joint; Z79.82 Long term (current) use of aspirin; Z79.899 Other long term (current) drug therapy; Z90.711 Acquired absence of uterus with remaining cervical stump; X58.XXXA Exposure to other specified factors, initial encounter; Y93.89 Activity, other specified; Y92.89 Other specified places as the place of occurrence of the external cause; Y99.8 Other external cause status
CPT/HCPCS: 36415; 36573; 36600; 71045; 71250; 71275; 74174; 74176; 78580; 80048; 80053; 80202; 81003; 82040; 82085; 82375; 82550; 82553; 82805; 82962; 82977; 83036; 83605; 83735; 83880; 84100; 84134; 84145; 84439; 84443; 84478; 84484; 85025; 85027; 85379; 86147; 87070; 87077; 87186; 87426; 87804; 93005; 93306; 93970; 94003; 94640; 94660; 99285; C1725; C9113; J0456; J0696; J1450; J1644; J1650; J1885; J1940; J1956; J2060; J2185; J2250; J2543; J2704; J2920; J2930; J3010; J3370; J3475; J3490; J7030; J7608; J7626; Q9967